=== PATIENT | female | born 1950 ===

== ENCOUNTER 2017-01-08 13:52 | Emergency (ER) | payer MEDICARE, MEDICAID ==
[2017-01-08 13:53] VITALS: BMI 35.1
[2017-01-08] MEDS ORDERED: Naproxen 550 mg Tab PO STA (14:25)
[2017-01-08] MEDS ORDERED: Naproxen 550 mg Tab PO ONE (14:28)
--- NOTE | 2017-01-08 14:58 | C.PDOC ---
History Of Present Illness 66-year-old female, presents to the emergency department with complaints of sore throat, chills, headache and fever that started yesterday. Patient notes associated productive cough with yellow sputum. Patient denies sick contacts, chest pain, shortness of breath, abdominal pain, nausea/vomiting, diarrhea, dysuria. Patient states she is compliant with HAART and current viral load is undetectable. No other complaints at this time. Time Seen by Provider: 01/08/17 14:01 Chief Complaint (Nursing): Flu-like Symptoms History Per: Patient History/Exam Limitations: no limitations Onset/Duration Of Symptoms: Days Current Symptoms Are (Timing): Still Present Past Medical History Reviewed: Historical Data, Nursing Documentation, Vital Signs Vital Signs: Last Vital Signs Temp 98.4 F 01/08/17 15:08 Pulse 74 01/08/17 15:08 Resp 20 01/08/17 15:08 BP 157/87 H 01/08/17 15:08 Pulse Ox 96 01/08/17 15:08 - Medical History PMH: Anxiety, Asthma, Bronchitis, Depression, Diabetes, Fractures (ANKLE CASTED NO SURGERY), Gall Bladder Disease, HIV, HTN, Hypercholesterolemia, Pneumonia ( 2012), Pulmonary Embolism Surgical History: Cholecystectomy, Endoscopy - [facility] Procedures ANGIOPLASTY OF OTHER NON-CORONARY VESSEL(S) (06/12/14) ATHERECTOMY OF OTHER NON-CORONARY VESSEL(S) (06/12/14) ESOPHAGOGASTRODUODENOSCOPY [EGD] W/CLOSED BIOPSY (12/07/98) PROCEDURE ON SINGLE VESSEL (06/12/14) Family History: States: No Known Family Hx - Social History Hx Tobacco Use: No Hx Alcohol Use: No Hx Substance Use: No - Immunization History Hx Tetanus Toxoid Vaccination: No Hx Influenza Vaccination: Yes Hx Pneumococcal Vaccination: Yes Review Of Systems Except As Marked, All Systems Reviewed And Found Negative. Constitutional: Positive for: Chills, Malaise. Negative for: Fever Cardiovascular: Negative for: Chest Pain, Palpitations Respiratory: Positive for: Cough, Sputum. Negative for: Shortness of Breath Gastrointestinal: Negative for: Nausea, Vomiting, Abdominal Pain Musculoskeletal: Negative for: Back Pain Neurological: Negative for: Headache, Dizziness Physical Exam - Physical Exam Appears: Non-toxic, No Acute Distress Skin: Warm, Dry, No Rash Head: Atraumatic, Normacephalic Eye(s): bilateral: Normal Inspection, PERRL Nose: Normal Oral Mucosa: Moist Lips: Normal Appearing Throat: Erythema, No Exudate Neck: Normal ROM, Supple Cardiovascular: Rhythm Regular, No Murmur Respiratory: Normal Breath Sounds, No Accessory Muscle Use Gastrointestinal/Abdominal: Soft, No Tenderness, No Guarding, No Rebound Extremity: Normal ROM Neurological/Psych: Oriented x3, Normal Speech ED Course And Treatment O2 Sat by Pulse Oximetry: 100 Disposition Counseled Patient/Family Regarding: Studies Performed, Diagnosis, Need For Followup, Rx Given - Disposition Referrals: Rochelle Hopkins MD [Non-Staff] - Disposition: HOME/ ROUTINE Disposition Time: 15:00 Condition: STABLE Additional Instructions: FOLLOW UP WITH YOUR DOCTOR IN 1-2 DAYS USE MEDICATIONS NEEDED DRINK PLENTY OF FLUIDS RETURN TO ER IF SYMPTOMS WORSEN Prescriptions: Benzonatate [Tessalon Perles] 100 mg PO BID PRN #15 sgl PRN Reason: Cough Naproxen 375 mg PO BID PRN #20 tablet PRN Reason: pain Phenol/Glycerin [Chloraseptic Max [place]] 1 spray MM Q6 PRN #1 spray PRN Reason: THROAT PAIN Instructions: Viral Syndrome (ED) Forms: [employer] (Togolese) Print Language: WELSH - Clinical Impression Clinical Impression: Viral syndrome - Scribe Statement The provider has reviewed the documentation as recorded by the Scribe (Adri Rome) All medical record entries made by the Scribe were at my direction and personally dictated by me. I have reviewed the chart and agree that the record accurately reflects my personal performance of the history, physical exam, medical decision making, and the department course for this patient. I have also personally directed, reviewed, and agree with the discharge instructions and disposition.
[2017-01-08 15:09] VITALS: BP 157/87; PULSE 74; RESP 20; TEMP 98.4
[2017-01-08 15:23] VITALS: O2SAT 100
--- NOTE | 2017-01-08 15:36 | RAD ---
HISTORY: COUGH, CHILLS COMPARISON: 06/30/2013 TECHNIQUE: Chest PA and lateral FINDINGS: LUNGS: Mild venous congestion. Mild patchy increased markings at the left lung base. Upper lobe granulomatous changes. PLEURA: No significant pleural effusion identified. No pneumothorax apparent. CARDIOVASCULAR: Normal. OSSEOUS STRUCTURES: Degenerative changes the spine with paravertebral osteophytes. VISUALIZED UPPER ABDOMEN: Normal. OTHER FINDINGS: None. IMPRESSION: Mild venous congestion. Mild patchy increased markings at the left lung base. Upper lobe granulomatous changes.
== END 2017-01-08 15:09 | disposition home or self-care (01) ==
LOC: C.ER 13:52
DX: B34.9 Viral infection, unspecified (principal)

== ENCOUNTER 2017-07-09 20:26 | Emergency (ER) | payer MEDICARE, MEDICAID ==
[2017-07-09 20:26] VITALS: BMI 35.1
[2017-07-09] MEDS ORDERED: Naproxen 550 mg Tab PO STA (20:52)
[2017-07-09] MEDS ORDERED: Naproxen 550 mg Tab PO ONE (21:04)
[2017-07-09 21:49] LABS: BASO # 0.1 K/uL (0.0-0.2); EOS % 0.4 % (0.0-4.0); HEMOGLOBIN 14.7 g/dL (11.0-16.0); LYMPH # 2.5 K/uL (1.0-4.3); LYMPH % 24.4 % (20.0-40.0); MEAN CELL VOLUME 89.9 fL (81.0-99.0); MEAN CORPUSCULAR HEMOGLOBIN 30.3 pg (27.0-31.0); MEAN CORPUSCULAR HGB CONC 33.7 g/dL (33.0-37.0); MEAN PLATELET VOLUME 9.3 fL (7.2-11.7); MONO % 10.1 % (0.0-10.0); NEUT # 6.6 K/uL (1.8-7.0); NEUT % 64.1 % (50.0-75.0); NRBC % 0.1 % (0.0-2.0); RBC 4.85 Mil/uL (3.80-5.20); RED CELL DISTRIBUTION WIDTH 14.8 % (11.5-14.5); WHITE BLOOD COUNT 10.3 K/uL (4.8-10.8)
--- NOTE | 2017-07-09 21:56 | C.PDOC ---
History Of Present Illness 67 year old female, whose PMHx includes DM, HTN, HIV, DVT and asthma, presents to the ED for evaluation of bilateral rib pain which began 3 days ago. Patient states the pain radiates into her back. She notes she experiences the pain when she coughs, but denies persistent coughing. Notes this does not feel like her asthma, she is not SOB. She took Tylenol with transient relief. Patient denies fever, chills, chest pain, headache, dizziness or known trauma to the area. Time Seen by Provider: 07/09/17 20:46 Chief Complaint (Nursing): Back Pain History Per: Patient History/Exam Limitations: no limitations Onset/Duration Of Symptoms: Days (3) Current Symptoms Are (Timing): Still Present Quality Of Discomfort: "Pain" Additional History Per: Patient Past Medical History Reviewed: Historical Data, Nursing Documentation, Vital Signs Vital Signs: Last Vital Signs Temp 98.1 F 07/09/17 20:36 Pulse 70 07/09/17 20:36 Resp 18 07/09/17 20:36 BP 156/83 H 07/09/17 20:36 Pulse Ox 98 07/09/17 22:04 - Medical History PMH: Anxiety, Asthma, Bronchitis, Depression, Diabetes, Fractures (ANKLE CASTED NO SURGERY), Gall Bladder Disease, HIV, HTN, Hypercholesterolemia, Pneumonia ( 2012), Pulmonary Embolism Surgical History: Cholecystectomy, Endoscopy - [facility] Procedures ANGIOPLASTY OF OTHER NON-CORONARY VESSEL(S) (06/12/14) ATHERECTOMY OF OTHER NON-CORONARY VESSEL(S) (06/12/14) ESOPHAGOGASTRODUODENOSCOPY [EGD] W/CLOSED BIOPSY (12/07/98) PROCEDURE ON SINGLE VESSEL (06/12/14) Family History: States: Unknown Family Hx - Social History Hx Tobacco Use: No Hx Alcohol Use: No Hx Substance Use: No - Immunization History Hx Tetanus Toxoid Vaccination: No Hx Influenza Vaccination: Yes Hx Pneumococcal Vaccination: Yes Review Of Systems Constitutional: Negative for: Fever, Chills Respiratory: Negative for: Shortness of Breath Musculoskeletal: Positive for: Back Pain (upper), Other (bilateral rib pain ) Physical Exam - Physical Exam Appears: Non-toxic, No Acute Distress Skin: Normal Color, Warm, Dry Head: Atraumatic, Normacephalic Eye(s): bilateral: Normal Inspection, EOMI Nose: Normal Oral Mucosa: Moist Throat: Normal, No Erythema, No Exudate Neck: Normal ROM, Supple Chest: Symmetrical, No Deformity, Tenderness (to lateral chest wall, bilaterally ) Cardiovascular: Rhythm Regular Respiratory: Normal Breath Sounds, No Rales, No Rhonchi, No Wheezing Back: No Vertebral Tenderness, No Paraspinal Tenderness Extremity: Normal ROM, Capillary Refill (less than 2 seconds) Neurological/Psych: Oriented x3, Normal Speech, Normal Cognition Gait: Steady ED Course And Treatment - Laboratory Results Result Diagrams: 07/09/17 21:41 07/09/17 21:41 ECG: Interpreted By Me, Viewed By Me ECG Rhythm: Sinus Rhythm Rate From EC O2 Sat by Pulse Oximetry: 98 (on RA) Pulse Ox Interpretation: Normal Progress Note: Bloodwork, CXR, EKG ordered and reviewed. Naproxen PO administered. Dr Paul took over care of pt at 11pm pending CTA and re- evaluation. Disposition - Disposition Disposition Time: 23:00 Condition: STABLE Forms: [facility] (Zimbabwean) - Clinical Impression Clinical Impression: Chest wall pain - Scribe Statement The provider has reviewed the documentation as recorded by the Scribe (Bonnie Terry) All medical record entries made by the Scribe were at my direction and personally dictated by me. I have reviewed the chart and agree that the record accurately reflects my personal performance of the history, physical exam, medical decision making, and the department course for this patient. I have also personally directed, reviewed, and agree with the discharge instructions and disposition.
[2017-07-09 21:58] LABS: ALB/GLOB RATIO 0.9 (1.0-2.1); ALBUMIN 3.7 g/dL (3.5-5.0); ALT/SGPT 45 U/L (9-52); AST/SGOT 31 U/L (14-36); BLOOD UREA NITROGEN 30 mg/dL (7-17); CALCIUM 9.7 mg/dl (8.6-10.4); GFR AFRICAN-AMERICAN > 60; GFR NON-AFRICAN AMERICAN > 60
[2017-07-09 22:12] LABS: B-TYPE NATRIURETIC PEPTIDE 121 pg/mL (0-900); CK-MB 0.93 ng/mL (0.0-3.38)
[2017-07-09] MEDS ORDERED: Sodium Chloride 0.9% 1,000 ML IV ONE (22:37)
[2017-07-09] MEDS ORDERED: Iodixanol 320 MG/ML 100 ML BOTTLE IV ONE (22:56)
[2017-07-10 00:06] VITALS: BP 145/81; PULSE 77; RESP 16; TEMP 98.7; O2SAT 97
--- NOTE | 2017-07-10 00:19 | CT ---
EXAM: CT Angiography Chest With Intravenous Contrast CLINICAL HISTORY: 67 years old, female; Pain; Chest pain; Patient HX: [id number]; Additional info: SOB TECHNIQUE: Axial computed tomographic angiography images of the chest with intravenous contrast using pulmonary embolism protocol. All CT scans at this facility use one or more dose reduction techniques, viz.: automated exposure control; ma/kV adjustment per patient size (including targeted exams where dose is matched to indication; i.e. head); or iterative reconstruction technique. MIP reconstructed images were created and reviewed. Coronal and sagittal reformatted images were created and reviewed. CONTRAST: 100 mL of [id number] administered intravenously. COMPARISON: No relevant prior studies available. FINDINGS: Limitations: Motion artifact - mild. Pulmonary arteries: No definite pulmonary embolism. Aorta: Mild atherosclerotic disease of aorta. No aneurysm. Lungs: Minimal atelectasis. No consolidation. Pleural space: No significant effusion. No pneumothorax. Heart: No cardiomegaly. No significant pericardial effusion. Mild coronary artery calcifications. Mediastinum: Probable small hiatal hernia. Bones/joints: Degenerative changes of spine. No acute fracture. Soft tissues: Few small scattered breast calcifications. Lymph nodes: No pathologically enlarged lymph nodes. Gallbladder and bile ducts: Cholecystectomy. IMPRESSION: 1. No definite CT evidence of pulmonary embolism. 2. Incidental/non-acute findings are described above.
--- NOTE | 2017-07-10 08:25 | RAD ---
HISTORY: SOB COMPARISON: Chest radiograph dated 01/08/2017. TECHNIQUE: Chest PA and lateral FINDINGS: LUNGS: No active pulmonary disease. PLEURA: No significant pleural effusion identified. No pneumothorax apparent. CARDIOVASCULAR: Atherosclerotic aortic calcifications. Cardiomediastinal silhouette stably enlarged. OSSEOUS STRUCTURES: Unchanged. VISUALIZED UPPER ABDOMEN: Normal. OTHER FINDINGS: None. IMPRESSION: No active disease.
--- NOTE | 2017-07-10 12:00 | CARD ---
APPROVED REPORT EKG Measurement Heart [id number] <Conclusion> Normal sinus rhythm Normal ECG
== END 2017-07-10 00:42 | disposition home or self-care (01) ==
LOC: C.ER 20:26
DX: R07.89 Other chest pain (principal); E11.9 Type 2 diabetes mellitus without complications; E78.00 Pure hypercholesterolemia, unspecified; I10 Essential (primary) hypertension
CPT/HCPCS: 71046; 71275; 80053; 82550; 82553; 83880; 84484; 85025; 85378; 93005; 96360; 99283; J7040; Q9967

== ENCOUNTER 2018-05-09 08:49 | Emergency (ER) | payer MEDICARE, MEDICAID ==
[2018-05-09 08:50] VITALS: BMI 35.1
[2018-05-09 09:29] VITALS: RESP 18
[2018-05-09] MEDS ORDERED: Naproxen 550 mg Tab PO STA (09:39)
--- NOTE | 2018-05-09 09:39 | C.PDOC ---
History Of Present Illness 68 y/o female presents to the ER complaining of frontal headache, nasal congestion, sneezing, cough, and body aches which have been present for the past few days. Patient states that she took Tylenol for the pain, however she did not take any medications today. Denies having fever,chills, CP, SOB, nausea, vomiting, and abdominal pain. Chief Complaint (Nursing): Flu-like Symptoms History Per: Patient History/Exam Limitations: no limitations Onset/Duration Of Symptoms: Days Current Symptoms Are (Timing): Still Present Severity: Moderate Past Medical History Reviewed: Historical Data, Nursing Documentation, Vital Signs Vital Signs: Last Vital Signs Temp 97.8 F 05/09/18 09:28 Pulse 81 05/09/18 09:28 Resp 18 05/09/18 09:28 BP 123/85 05/09/18 09:28 Pulse Ox 96 05/09/18 09:28 - Medical History PMH: Anxiety, Asthma, Bronchitis, Depression, Diabetes, Fractures (ANKLE CASTED NO SURGERY), Gall Bladder Disease, HIV, HTN, Hypercholesterolemia, Pneumonia (2012), Pulmonary Embolism Surgical History: Cholecystectomy, Endoscopy - [facility] Procedures ANGIOPLASTY OF OTHER NON-CORONARY VESSEL(S) (06/12/14) ATHERECTOMY OF OTHER NON-CORONARY VESSEL(S) (06/12/14) ESOPHAGOGASTRODUODENOSCOPY [EGD] W/CLOSED BIOPSY (12/07/98) PROCEDURE ON SINGLE VESSEL (06/12/14) Family History: States: No Known Family Hx - Social History Hx Tobacco Use: No Hx Alcohol Use: No Hx Substance Use: No - Immunization History Hx Tetanus Toxoid Vaccination: No Hx Influenza Vaccination: Yes Hx Pneumococcal Vaccination: Yes Review Of Systems Except As Marked, All Systems Reviewed And Found Negative. Constitutional: Positive for: Malaise. Negative for: Fever, Chills ENT: Positive for: Nose Congestion Cardiovascular: Negative for: Chest Pain Respiratory: Positive for: Cough. Negative for: Shortness of Breath Gastrointestinal: Negative for: Nausea, Vomiting, Abdominal Pain Neurological: Positive for: Headache Physical Exam - Physical Exam Appears: Non-toxic, No Acute Distress Skin: Normal Color, Warm, Dry Head: Atraumatic, Normacephalic Eye(s): bilateral: Normal Inspection Nose: Normal Oral Mucosa: Moist Throat: Normal, No Erythema, No Exudate Neck: Supple Chest: Symmetrical Cardiovascular: Rhythm Regular Respiratory: Normal Breath Sounds, No Rales, No Rhonchi, No Wheezing Neurological/Psych: Oriented x3, Normal Speech ED Course And Treatment O2 Sat by Pulse Oximetry: 96 (RA) Pulse Ox Interpretation: Normal Medical Decision Making Medical Decision Making: Plan: --Naproxen PO Updates: Pt re-eval. Denies any complaint at this time. Agrees with d/c plan and ambulating around room/getting dressed without issue. Pt understands and agrees to immediately return to the ER if fevers, neck pain, HAs, n/v, or any other concerning, worsening, new or continued sxs. Otherwise, will f/u with pcp in 1-2 days. States will call [facility] to make an appt. Patient states feeling better and would like to go home. Patient is very well appearing and non-toxic. Vital signs are stable. I discussed the results of the work-up, diagnosis and treatment. Written discharge instructions were provided to patient. Additional verbal instructions were given and discussed with patient. We discussed the importance of follow up with PCP/consultants. I also reiterated reasons to immediately return to the ER including: worsening in current symptoms and/or new, continued, or concerning symptoms. Pt understood and agreed. Disposition - Disposition Referrals: Physician,ED [Primary Care Provider] - Disposition: HOME/ ROUTINE Disposition Time: 11:13 Condition: IMPROVED Additional Instructions: JOANNE BLOOM, thank you for letting us take care of you today. Your provider was Xochilt Shore MD and you were treated for SORE THROAT. The emergency medical care you received today was directed at your acute symptoms. If you were prescribed any medication, please fill it and take as directed. It may take several days for your symptoms to resolve. Return to the Emergency Department if your symptoms worsen, do not improve, or if you have any other problems. Please contact your doctor in 1-2 days for a follow up appointment. Bring any paperwork you were given at discharge with you along with any medications you are taking to your follow up visit. Our treatment cannot replace ongoing medical care by a primary care provider outside of the emergency department. Thank you for allowing the [facility] hospital team to be part of your care today. Prescriptions: Naproxen [Naprosyn] 500 mg PO BID PRN #30 tablet PRN Reason: Pain, Moderate (4-7) Instructions: Viral Syndrome (DC) Forms: [facility] (Sinhala), General Discharge Instructions - Clinical Impression Clinical Impression: Viral syndrome - Scribe Statement The provider has reviewed the documentation as recorded by the Scribe Shobha Madrid Provider Attestation: All medical record entries made by the Scribe were at my direction and personally dictated by me. I have reviewed the chart and agree that the record accurately reflects my personal performance of the history, physical exam, medical decision making, and the department course for this patient. I have also personally directed, reviewed, and agree with the discharge instructions and disposition.
[2018-05-09] MEDS ORDERED: Naproxen 550 mg Tab PO ONE (09:49)
[2018-05-09 11:20] VITALS: BP 99/66; PULSE 72; TEMP 97.6
[2018-05-09 12:33] VITALS: O2SAT 96
== END 2018-05-09 11:25 | disposition home or self-care (01) ==
LOC: C.ER 08:49
DX: B34.9 Viral infection, unspecified (principal); E11.9 Type 2 diabetes mellitus without complications; E78.00 Pure hypercholesterolemia, unspecified; I10 Essential (primary) hypertension

== ENCOUNTER 2018-05-18 05:48 | Emergency (ER) | payer MEDICARE, MEDICAID ==
[2018-05-18 05:48] VITALS: BMI 35.1
[2018-05-18 06:01] VITALS: RESP 20
[2018-05-18] MEDS ORDERED: Albuterol-Ipratrop 3 mg / 0.5 (3 ml) UD INH STA ×3 (06:04→06:43)
[2018-05-18] MEDS ORDERED: Albuterol-Ipratrop 3 mg / 0.5 (3 ml) UD ONE ×3 (06:06→06:52)
--- NOTE | 2018-05-18 06:08 | C.PDOC ---
History Of Present Illness patient w/ hx asthma and recently treated 9 days ago for respiratory tract infection c/o persistent cough runny nose, sore throat and chest tightness. she has been using an albuterol inhaler with minimal relief. She denies fever, nausea, vomiting, or weakness. <RamírezMatteo pitt - Last Filed: 05/18/18 07:01> History Per: Patient History/Exam Limitations: no limitations Onset/Duration Of Symptoms: Days (9) Current Symptoms Are (Timing): Still Present Associated Symptoms: Sore Throat, Cough, Nasal Congestion. denies: Sputum, Nausea, Vomiting, Diarrhea <FilemonMatteo - Last Filed: 05/18/18 07:01> <Chika Krishnan - Last Filed: 05/18/18 11:09> Time Seen by Provider: 05/18/18 05:58 Chief Complaint (Nursing): Cough, Cold, Congestion Past Medical History Vital Signs: Last Vital Signs Temp 97.6 F 05/18/18 05:54 Pulse 84 05/18/18 05:54 Resp 20 05/18/18 05:54 BP 139/74 05/18/18 05:54 Pulse Ox 95 05/18/18 05:54 - Medical History PMH: Anxiety, Asthma, Bronchitis, Depression, Diabetes, Fractures, Gall Bladder Disease, HIV, HTN, Hypercholesterolemia, Pneumonia (2012), Pulmonary Embolism Surgical History: Cholecystectomy, Endoscopy - [facility] Procedures ANGIOPLASTY OF OTHER NON-CORONARY VESSEL(S) (06/12/14) ATHERECTOMY OF OTHER NON-CORONARY VESSEL(S) (06/12/14) ESOPHAGOGASTRODUODENOSCOPY [EGD] W/CLOSED BIOPSY (12/07/98) PROCEDURE ON SINGLE VESSEL (06/12/14) Family History: States: CAD, Diabetes, Hypertension - Social History Hx Tobacco Use: No Hx Alcohol Use: No Hx Substance Use: No - Immunization History Hx Tetanus Toxoid Vaccination: Yes Hx Influenza Vaccination: Yes Hx Pneumococcal Vaccination: Yes <FilemonMatteo - Last Filed: 05/18/18 07:01> Vital Signs: Last Vital Signs Temp 98.3 F 05/18/18 07:51 Pulse 98 H 05/18/18 07:51 Resp 20 05/18/18 07:51 BP 122/63 05/18/18 07:51 Pulse Ox 96 05/18/18 07:51 - [facility] Procedures ANGIOPLASTY OF OTHER NON-CORONARY VESSEL(S) (06/12/14) ATHERECTOMY OF OTHER NON-CORONARY VESSEL(S) (06/12/14) ESOPHAGOGASTRODUODENOSCOPY [EGD] W/CLOSED BIOPSY (12/07/98) PROCEDURE ON SINGLE VESSEL (06/12/14) <Chika Krishnan - Last Filed: 05/18/18 11:09> Review Of Systems Constitutional: Negative for: Fever, Chills, Weakness ENT: Positive for: Nose Discharge, Nose Congestion, Throat Pain Cardiovascular: Negative for: Chest Pain Respiratory: Positive for: Cough, Wheezing. Negative for: Sputum Gastrointestinal: Negative for: Nausea, Vomiting Skin: Negative for: Rash Neurological: Negative for: Weakness <Matteo Colbert Last Filed: 05/18/18 07:01> Physical Exam - Physical Exam Appears: Well, Non-toxic Skin: Normal Color, Warm, Dry Head: Atraumatic, Normacephalic Nose: Normal, No Discharge, No Epistaxis, No Tenderness Oral Mucosa: Moist Tongue: Normal Appearing, No Swelling Lips: Normal Appearing, No Swelling Throat: No Erythema, No Exudate, No Drooling Neck: Normal, Normal ROM, Trachea Midline Chest: Symmetrical Cardiovascular: Rhythm Regular Respiratory: No Accessory Muscle Use, Wheezing Gastrointestinal/Abdominal: Soft, No Tenderness Extremity: Normal ROM, No Pedal Edema Extremity: Bilateral: Atraumatic Pulses: Left Radial: Normal, Right Radial: Normal Neurological/Psych: Oriented x3, Normal Speech, Normal Motor, Normal Sensation <Matteo Colbert Last Filed: 05/18/18 07:01> ED Course And Treatment O2 Sat by Pulse Oximetry: 95 Progress Note: she reports mild improvement in her chest tightness. she will get another duo neb and reassess by the day team. <Matteo Colbert Last Filed: 05/18/18 07:01> Medical Decision Making Medical Decision Making: Patient endorsed to me pending CXR reading and re-eval after duoneb treatments CXR shows no infiltrate. Patient remained afebrile in no distress. On my evaluation, the patient was resting upright and reported feeling better. Lungs at this time are now clear.Pt stable for discharge with Rx <Chika Krishnan - Last Filed: 05/18/18 11:09> Disposition <Matteo Colbert - Last Filed: 05/18/18 07:01> Counseled Patient/Family Regarding: Diagnosis, Need For Followup, Rx Given - Disposition Disposition Time: 07:50 <Chika Krishnan - Last Filed: 05/18/18 11:09> - Disposition Disposition: HOME/ ROUTINE Condition: IMPROVED Additional Instructions: Take antibiotic for 5 days Take cough medicine as needed follow up with your doctor return to ER if symptoms worsen Prescriptions: Azithromycin [Zithromax] 250 mg PO DAILY #6 tab Benzonatate [Tessalon Perles] 100 mg PO TID #30 sgl Instructions: Acute Bronchitis Forms: [facility] (Congolese) - Clinical Impression Clinical Impression: Bronchitis Physician Patient Turnover Patient Signed Over To: Chika Krishnan <Matteo Colbert - Last Filed: 05/18/18 07:01>
[2018-05-18 07:53] VITALS: BP 122/63; PULSE 98; TEMP 98.3; O2SAT 96
--- NOTE | 2018-05-18 09:43 | RAD ---
Date of service: 05/18/2018 HISTORY: Wheezing COMPARISON: 07/09/2017. TECHNIQUE: Chest PA and lateral FINDINGS: LINES AND TUBES: None. LUNG AND PLEURA: The lungs are well inflated and clear. No pleural effusion or pneumothorax. HEART AND MEDIASTINUM: The heart is not enlarged. No aortic atherosclerotic calcifications present. The hilar and mediastinal contours are within normal limits. SKELETAL STRUCTURES: The bony structures are within normal limits for the patient's age. VISUALIZED UPPER ABDOMEN: Normal. OTHER FINDINGS: None. IMPRESSION: No active pulmonary disease.
== END 2018-05-18 07:56 | disposition home or self-care (01) ==
LOC: C.ER 05:48
DX: J40 Bronchitis, not specified as acute or chronic (principal)

== ENCOUNTER 2018-05-21 14:24 | Emergency (ER) | payer MEDICARE, MEDICAID ==
[2018-05-21 14:24] VITALS: BMI 35.1
[2018-05-21] MEDS ORDERED: Albuterol-Ipratrop 3 mg / 0.5 (3 ml) UD INH STA ×3 (16:44→19:14)
--- NOTE | 2018-05-21 16:44 | C.PDOC ---
History Of Present Illness 68 y/o female with hiv, (CD4 greater than 500), dm, asthma, presents to ed with persistent cough and wheezing. pt was seen in ed on 05/09 and 05/18, taking naproxen and on last day zithromax, had neg cxr. pt has no meds for nebulizer treatment, using inhaler 2 times a day only. has not followed up wit pmd. <Tiffany Lai - Last Filed: 05/21/18 19:17> Patient presented to the ED because she could not fill her prescription for Duonebs. She needed paperwork for Medicare Part B filled out and a new RX. I added new RX <Martha Gannon - Last Filed: 05/22/18 11:47> History Per: Patient History/Exam Limitations: no limitations Onset/Duration Of Symptoms: Persistent Current Symptoms Are (Timing): Still Present <Tiffany Lai - Last Filed: 05/21/18 19:17> <Alessio Rehman - Last Filed: 05/21/18 19:49> <Martha Gannon - Last Filed: 05/22/18 11:47> Time Seen by Provider: 05/21/18 16:04 Chief Complaint (Nursing): Cough, Cold, Congestion Past Medical History Reviewed: Historical Data, Nursing Documentation, Vital Signs Vital Signs: Last Vital Signs Temp 97.9 F 05/21/18 15:06 Pulse 89 05/21/18 15:06 Resp 17 05/21/18 15:06 BP 113/81 05/21/18 15:06 Pulse Ox 94 L 05/21/18 15:06 - Medical History PMH: Anxiety, Asthma, Bronchitis, Depression, Diabetes, Fractures, Gall Bladder Disease, HIV, HTN, Hypercholesterolemia, Pneumonia (2012), Pulmonary Embolism Surgical History: Cholecystectomy, Endoscopy - [facility] Procedures ANGIOPLASTY OF OTHER NON-CORONARY VESSEL(S) (06/12/14) ATHERECTOMY OF OTHER NON-CORONARY VESSEL(S) (06/12/14) ESOPHAGOGASTRODUODENOSCOPY [EGD] W/CLOSED BIOPSY (12/07/98) PROCEDURE ON SINGLE VESSEL (06/12/14) Family History: States: Unknown Family Hx, CAD, Diabetes, Hypertension - Social History Hx Tobacco Use: No Hx Alcohol Use: No Hx Substance Use: No - Immunization History Hx Tetanus Toxoid Vaccination: No Hx Influenza Vaccination: Yes Hx Pneumococcal Vaccination: Yes <Tiffany Lai - Last Filed: 05/21/18 19:17> Vital Signs: Last Vital Signs Temp 97.8 F 05/21/18 19:45 Pulse 90 05/21/18 19:45 Resp 16 05/21/18 19:45 BP 113/56 L 05/21/18 19:45 Pulse Ox 99 05/21/18 19:45 - [facility] Procedures ANGIOPLASTY OF OTHER NON-CORONARY VESSEL(S) (06/12/14) ATHERECTOMY OF OTHER NON-CORONARY VESSEL(S) (06/12/14) ESOPHAGOGASTRODUODENOSCOPY [EGD] W/CLOSED BIOPSY (12/07/98) PROCEDURE ON SINGLE VESSEL (06/12/14) <Alessio Rehman - Last Filed: 05/21/18 19:49> Vital Signs: Last Vital Signs Temp 97.8 F 05/21/18 19:45 Pulse 90 05/21/18 19:45 Resp 16 05/21/18 19:45 BP 113/56 L 05/21/18 19:45 Pulse Ox 99 05/21/18 19:45 - [facility] Procedures ANGIOPLASTY OF OTHER NON-CORONARY VESSEL(S) (06/12/14) ATHERECTOMY OF OTHER NON-CORONARY VESSEL(S) (06/12/14) ESOPHAGOGASTRODUODENOSCOPY [EGD] W/CLOSED BIOPSY (12/07/98) PROCEDURE ON SINGLE VESSEL (06/12/14) <Martha Gannon - Last Filed: 05/22/18 11:47> Review Of Systems Constitutional: Negative for: Fever, Chills, Weakness Cardiovascular: Negative for: Chest Pain Respiratory: Positive for: Cough, Wheezing. Negative for: Shortness of Breath Neurological: Negative for: Weakness, Numbness, Dizziness <Tiffany Lai - Last Filed: 05/21/18 19:17> Physical Exam - Physical Exam Appears: Non-toxic, No Acute Distress Skin: Normal Color, Warm, Dry Head: Atraumatic, Normacephalic Eye(s): bilateral: PERRL, EOMI Neck: Supple Chest: Symmetrical, No Deformity Cardiovascular: Rhythm Regular, No Murmur Respiratory: No Accessory Muscle Use, No Rales, No Rhonchi, Wheezing (bila terally) Gastrointestinal/Abdominal: Soft, No Tenderness Neurological/Psych: Oriented x3, Normal Speech, Normal Cognition <Tiffany Lai - Last Filed: 05/21/18 19:17> ED Course And Treatment O2 Sat by Pulse Oximetry: 94 (in RA) <Tiffany Lai - Last Filed: 05/21/18 19:17> Pulse Ox Interpretation: Normal Reevaluation Time: 19:49 Reassessment Condition: Improved <Alessio Rehman - Last Filed: 05/21/18 19:49> Medical Decision Making Medical Decision Making: Impression: 68 y/o female with hiv, (CD4 greater than 500), dm, asthma, presents to ed with persistent cough and wheezing. Plan: Duoneb INH Prednisone PO pt feeling better after 2 nebs. still scattered rhonchi- given saline neb to llosen up secretions. s/o to dr Rehman to f/u after 3rtd neb and re-eval for dispo. <Tiffany Lai - Last Filed: 05/21/18 19:17> Medical Decision Making: Upon provider reevaluation patient is feeling better, is medically stable, and requires no further treatment in the ED at this time. Patient will be discharged home with Rx for albuterol, duoneb. Counseling was provided and all questions were answered regarding diagnosis and need for follow up with dr kearney. There is agreement to discharge plan. Return if symptoms persist or worsen. <Alessio Rehman - Last Filed: 05/21/18 19:49> Disposition Counseled Patient/Family Regarding: Diagnosis, Need For Followup - Disposition Disposition Time: 19:17 <Tiffany Lai - Last Filed: 05/21/18 19:17> Counseled Patient/Family Regarding: Studies Performed, Diagnosis, Need For Followup, Rx Given <Alessio Rehman - Last Filed: 05/21/18 19:49> <Martha Gannon - Last Filed: 05/22/18 11:47> - Disposition Referrals: Rochelle Kearney MD [Non-Staff] - Disposition: HOME/ ROUTINE Condition: FAIR Additional Instructions: Please return if symptoms recur Prescriptions: Albuterol/Ipratropium [Duoneb 3 MG/3 Ml-0.5 MG/3 Ml 3 Ml] 1 ea IH QID PRN #50 neb PRN Reason: Wheezing Albuterol/Ipratropium [Duoneb 3 MG/3 Ml-0.5 MG/3 Ml 3 Ml] 1 ea IH TID PRN #30 neb PRN Reason: Wheezing Prednisone [Deltasone] 20 mg PO DAILY #5 tablet Instructions: Asthma, Adult (DC) Forms: [email or web address] ([place]) - Clinical Impression Clinical Impression: Upper respiratory infection, Asthma - PA / DIRECTOR OF PRODUCT DEVELOPMENT / Resident Statement MD/DO has reviewed & agrees with the documentation as recorded. (Amarilys Mckenzie) - Scribe Statement The provider has reviewed the documentation as recorded by the Scribe (Amarilys Mckenzie) All medical record entries made by the Scribe were at my direction and personally dictated by me. I have reviewed the chart and agree that the record accurately reflects my personal performance of the history, physical exam, medical decision making, and the department course for this patient. I have also personally directed, reviewed, and agree with the discharge instructions and disposition. <Tiffany Lai - Last Filed: 05/21/18 19:17> Physician Patient Turnover Patient Signed Over To: Alessio Rehman Handoff Comments: re-eval after saline and duo neb, check o2 sat. if pt goes home, d/c with albuterol for neb and prednisone. close pmd f/u <Tiffany Lai - Last Filed: 05/21/18 19:17>
[2018-05-21] MEDS ORDERED: Albuterol-Ipratrop 3 mg / 0.5 (3 ml) UD ONE ×3 (17:22→19:43)
[2018-05-21] MEDS ORDERED: Sodium Chloride 0.9% Inh Soln (3mL) UD INH ONE (19:14)
[2018-05-21 19:45] VITALS: BP 113/56; PULSE 90; RESP 16; TEMP 97.8; O2SAT 99
== END 2018-05-21 20:06 | disposition home or self-care (01) ==
LOC: C.ER 14:24
DX: J06.9 Acute upper respiratory infection, unspecified (principal); J45.909 Unspecified asthma, uncomplicated; I10 Essential (primary) hypertension; E78.00 Pure hypercholesterolemia, unspecified; E11.9 Type 2 diabetes mellitus without complications